=== PATIENT | male | born 1995 | race Caucasian/White ===

== ENCOUNTER 2020-10-13 23:30 | Emergency (ER) | payer SELFPAY ==
[~2020-10-13] VITALS: Ht 182.9 cm; Wt 129.3 kg
[2020-10-14] MEDS ORDERED: ACETAMINOPHEN 325 MG TAB PO ONE
[2020-10-14 05:10] VITALS: BP 138/81
== END 2020-10-14 05:55 | disposition home or self-care (01) ==
LOC: ER 23:32
DX: U07.1 COVID-19 (principal); J06.9 Acute upper respiratory infection, unspecified
CPT/HCPCS: 36415; 71045; 87426